=== PATIENT | female | born 1955 | race Hispanic/Latino ===

== ENCOUNTER → 2017-01-03 | Outpatient (CLI) | payer SELFPAY | LOC: GMAH 17:55 | PROVIDERS: ATTEND Family Medicine | DX: N30.00 Acute cystitis without hematuria (principal) ==

== ENCOUNTER → 2019-03-13 | Outpatient (CLI) | payer MEDICARE | LOC: GMAJS 19:20 | PROVIDERS: ATTEND Physician Assistant | DX: N30.00 Acute cystitis without hematuria (principal) ==